=== PATIENT | male | born 1975 | race Caucasian/White ===

== ENCOUNTER 2018-11-06 00:48 | Emergency (ER) | payer BC ==
[~2018-11-06] VITALS: Ht 175.3 cm; Wt 87.8 kg
[~2018-11-06 00:48] MED LIST: BLOOD PRESSURE PILL PO
[2018-11-06 00:52] VITALS: Ht 175.3 cm; Wt 87.8 kg
[2018-11-06] MEDS ORDERED: VANCOMYCIN 1 GM (PMX) 250 ML IVPB ONE (02:30)
[2018-11-06] MEDS ORDERED: BACITRACIN 0.9 GM OINT TOP ONE (02:30)
[2018-11-06] MEDS ORDERED: DIPHTH/TET/ACEL PERTUSS (ADULT) 0.5 ML VIAL IM* ONE (02:30)
--- NOTE | 2018-11-06 03:17 | ERD ---
ER Documentation Chief Complaint Chief Complaint ZANE has cut from bed rail 4 days ago, area is red and has serosanganous HPI This is a 42-year-old male with a past medical history of hypertension, alcohol abuse who is presenting for a wound to the right lower extremity. The patient reportedly cut his right leg on the bed rail and sustained a linear laceration that is approximately 4 cm in length. The patient was hoping that the wound would just heal on its own, but over the last several days it has become warm and red and indurated. He noticed some purulent discharge coming from the wound as well, which is ultimately what prompted him to come to the emergency department. The patient does also endorse right lower extremity swelling. The patient denies feeling sick otherwise. He denies any fever or chills. He den ies any other symptoms. The patient has had no headache or vision changes. The patient does not endorse neck or back pain. The patient denies lightheadedness or dizziness. The patient has had no chest pain or trouble breathing. The patient denies nausea or vomiting. The patient denies abdominal pain. The patient denies changes to bowel movements or urination. The patient has had no focal deficits. The patient has had no weakness or numbness or tingling to the face or extremities. ROS All systems reviewed and are negative except as per history of present illness. Medications Home Meds Reported Medications [Blood Pressure Pill] No Conflict Check, MG PO DAILY 03/07/14 Allergies Allergies: Coded Allergies: No Known Allergy (Unverified , 11/06/18) PMhx/Soc History of Surgery: Yes (hernia repair, right arm ORIF) Anesthesia Reaction: No Hx Neurological Disorder: No Hx Respiratory Disorders: No Hx Cardiac Disorders: Yes (Hypertension) Hx Psychiatric Problems: No Hx Miscellaneous Medical Probl: No Hx Alcohol Use: Yes (daily) Hx Substance Use: Yes (marijuana) Hx Tobacco Use: No Smoking Status: Unknown if ever smoked FmHx Family History: No diabetes Physical Exam Vitals Vital Signs Date Temp Pulse Resp B/P (MAP) Pulse Ox O2 O2 Flow FiO2 Time Delivery Rate 11/06/18 98.7 95 20 144/98 97 00:52 (113) Physical Exam Const: No acute distress Head: Atraumatic Eyes: Normal Conjunctiva ENT: Normal External Ears, Nose and Mouth. Neck: Full range of motion. No meningismus. Resp: Clear to auscultation bilaterally Cardio: Regular rate and rhythm, no murmurs Abd: Soft, non tender, non distended. Normal bowel sounds Skin: No petechiae or rashes Back: No midline or flank tenderness Ext: No cyanosis. Right lower extremity edema with a 4 cm linear laceration with surrounding erythema, induration, warmth and minimal purulence from the wound. Neur: Awake and alert Psych: Normal Mood and Affect Results 24 hrs Current Medications Medications Dose Sig/Kourtney Start Time Status Last (Trade) Ordered Route PRN Stop Time Admin Dose Reason Admin Vancomycin 250 ml @ ONCE ONCE 11/06/18 11/06/18 HCl 125 mls/hr IVPB 02:30 02:29 11/06/18 04:29 Diphtheria/ 0.5 ml ONCE ONCE 11/06/18 DC 11/06/18 Tetanus/Acell IM* 02:30 02:29 Pertussis 11/06/18 02:31 (Adacel) Bacitracin 1 applic ONCE ONCE 11/06/18 DC 11/06/18 (Bacitracin TOP 02:30 02:29 Oint (Ud)) 11/06/18 02:31 Procedures/MDM MDM Previous medical records, if available, were reviewed. TREATMENT/DISPOSITION The patient symptoms are consistent with cellulitis, related to the wound that was sustained after being cut on a bed railing. Unfortunately, the laceration was sustained several days ago, and it is now too late to suture the wound. I do suspect that the wound will heal via secondary intention. The wound was cleaned in the emergency department. Bacitracin was applied and a wound dressing was placed. The patient was treated with vancomycin in the emergency department. The patient is afebrile with normal vital signs. There is no evidence of a systemic infection. I do not suspect sepsis and I do not feel the patient requires a full septic work-up. I do feel that the patient's symptoms may be treated in an outpatient setting. The patient has Neosporin at home and he was instructed to keep the wound clean and dry and apply this ointment 3 times a day. The patient will also be provided oral antibiotics. The patient's symptoms are not consistent with DVT. There is no evidence of fracture dislocation. I do not suspect osteo-myelitis. There is no evidence of abscess. I do not suspect necrotizing fasciitis. The patient does admit to daily alcohol abuse. The patient was given resources for rehabilitation. DISCHARGE Upon reevaluation of the patient, symptoms have improved. No emergent diagnoses were identified. At this time, I feel that the patient stable for discharge. The patient was instructed to follow-up with a primary care physician in 1-3 days. The patient will be given strict precautions with which to return to the emergency department. Prescriptions: Ibuprofen, Bactrim, Keflex The patient's blood pressure was elevated at greater than 120/80 while in the emergency department. The patient was otherwise stable with no evidence of hypertensive urgency or emergency. The patient does not require admission for blood pressure control. I have discussed with the patient the risks of hypertension. I have instructed the patient to return to the ER for any new or worsening symptoms including chest pain, shortness of breath, headache, blurred vision, confusion, nausea, vomiting or LOC. I have advised the patient to follow up with the primary care physician for outpatient monitoring and treatment for hypertension in 1-3 days. Disclaimer: Inadvertent spelling and grammatical errors are likely due to EHR/dictation software use and do not reflect on the overall quality of patient care. Note that the electronic time recorded on this note does not necessarily reflect the actual time of the patient encounter. Departure Diagnosis: Primary Impression: Cellulitis of right lower extremity Additional Impressions: Laceration of right lower extremity Encounter type: sequela Qualified Codes: S81.811S - Laceration without foreign body, right lower leg, sequela Alcohol abuse Edema of right lower extremity Condition: Stable Patient Instructions: Alcohol Abuse, Cellulitis, Laceration, All Additional Instructions: Thank you for for coming to [facility] for your care today. Please ask your nurse or provider if you have questions about your care today and do not leave until all your questions have been answered. Please use any medications given as directed and follow-up with your doctor (or the doctor you were referred to) in the next 1-3 days. If you do not have a primary care doctor you may follow up at the [facility] (listed below). You may also use motrin and tylenol as needed for fever and/or pain unless instructed otherwise by your provider or nurse. Indications for more urgent follow-up have been discussed, but you may return to the Emergency Department at ANY time for any worrisome or worsening symptoms. If you have abdominal pain, please know that no test or exam you received is pe rfect and you should follow up within 8 hours for continued pain. If you had any imaging studies today, such as an X-Ray or CT Scan, these studies will be reviewed later by a radiologist. You will be called if there are important findings that were not identified today, so make sure the contact information you provided at registration is correct. If you received any narcotic pain control medicine today, such as Vicodin, Morphine or Dilaudid, your coordination and judgment may be affected for a number of hours. Please do not drive or operate heavy machinery, and you may want someone to assist you at home. If you were given a prescription for narcotic medication, be aware that it is very addictive- use sparingly and only if necessary. PLEASE SEEK FURTHER EVALUATION AND MANAGEMENT AT YOUR DOCTORS OFFICE WITHIN THE NEXT 1-3 DAYS. IT IS YOUR RESPONSIBILITY TO MAKE AN APPOINTMENT FOR FOLOW-UP CARE. IF YOU HAVE A PRIMARY DOCTOR, PLEASE CALL THEIR OFFICE TO SCHEDULE AN APPOINTMENT FOR FOLLOW UP. IF YOU DO NOT HAVE A PRIMARY DOCTOR YOU CAN CALL OUR PHYSICIAN REFERRAL HOTLINE AT IF YOU CAN NOT AFFORD TO SEE A PHYSICIAN YOU CAN CHOSE FROM THE FOLLOWING [facility] CLINICS: [facility] [address] [facility]. [facility] [address] [facility] [facility] [address] [facility]. [facility] [address] [facility]. [facility] [address] [facility]. [facility]. [address] BUTCH REES MD November 06, 2018 03:17
[2018-11-06] MEDS ORDERED: IBUP-1542 PO (03:19)
[2018-11-06] MEDS ORDERED: CEPH-443 PO (03:19)
[2018-11-06] MEDS ORDERED: SULF1TAB31 PO (03:19)
[2018-11-06 05:10] VITALS: BP 123/77; PULSE 85; RESP 18
== END 2018-11-06 05:10 | disposition home or self-care (01) ==
LOC: E/R 00:48
DX: S81.811A Laceration without foreign body, right lower leg, initial encounter (principal); I10 Essential (primary) hypertension; L03.115 Cellulitis of right lower limb; F10.10 Alcohol abuse, uncomplicated; R22.41 Localized swelling, mass and lump, right lower limb; W26.8XXA Contact with other sharp object(s), not elsewhere classified, initial encounter; Y92.9 Unspecified place or not applicable; Z23 Encounter for immunization
CPT/HCPCS: 90471; 90715; 96365; 96366; 99284; J3370